=== PATIENT | male | born 1955 | race Caucasian/White ===

== ENCOUNTER 2018-05-21 18:48 | Inpatient (IN) | payer OTHER ==
[~2018-05-21] VITALS: Ht 177.8 cm; Wt 74.8 kg
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
--- NOTE | ~2018-05-21 | EKG ---
[address] [place] [address] ELECTROCARDIOGRAM REPORT Name: MEGHA GOMEZ Room #: 406-P ADM IN M.R.#: [id number] Admission: 05/21/18 Attend Phys: Antelmo Olivares MD Discharge: Date of : 53 Report #: [id number] THIS REPORT FOR: //name// [facility] ED Test Date: 2018-05-21 Test Time: 19:25:06 Pat Name: MEGHA GOMEZ Department: Room: Gender: M Operations Supervisor 2Nd Shift: Morelia THOMPSON : 1955 Requested By: Taisha Gilmore Order Number: [id number] MD: Doug Fofana Measurements Intervals [place] Rate: 50 P: 24 TX: 153 QRS: 2 QRSD: 98 T: 44 QT: 455 QTc: 415 Interpretive Statements Sinus rhythm Minimal ST elevation, anterior leads Baseline wander in lead(s) V4 No previous ECG available for comparison Electronically Signed On 05-21-2018 20:41:51 CDT by Doug Fofana [email or web address] <ELECTRONICALLY SIGNED> By: Doug Fofana MD 05/21/182040 24 24 Doug Fofana MD /ANALI
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
[2018-05-21 18:51] VITALS: BP 144/62
[2018-05-21 19:52] LABS: BASOPHILS 0.8 % (0.0-2.0); EOSINOPHILS 2.5 % (0.0-3.0); HEMATOCRIT 42.5 % (42.0-52.0); HEMOGLOBIN 14.5 gm/dL (14.0-18.0); LYMPHOCYTES 37.6 % (24.0-44.0); MCH 31.3 pg (26.0-34.0); MCHC 34.1 g/dL (28.0-37.0); MONOCYTES 7.5 % (1.0-8.0); PLATELET COUNT 237 thou/uL (150-400); POLYS 51.6 % (36.0-66.0); RBC 4.62 mil/uL (4.50-6.00); RDW 13.8 % (10.5-14.5); WBC 5.8 thou/uL (4.0-11.0)
[2018-05-21 19:54] LABS: CALCIUM 9.5 mg/dL (8.5-10.1); CREATININE 1.4 mg/dL (0.7-1.3); POTASSIUM 4.1 mmol/L (3.5-5.1)
[2018-05-21 20:14] VITALS: BP 154/88
[2018-05-21 20:43] VITALS: BP 150/86
[2018-05-21] MEDS ORDERED: CLARITIN10 MG PO (20:48)
[2018-05-21] MEDS ORDERED: UNICOMPLEX M TA1 TA1 PO (20:49)
[2018-05-22] VITALS (7 sets, daily range): BP systolic 97–129; BP diastolic 58–82
[2018-05-22 05:37] LABS: PROTIME 10.6 Seconds (9.3-11.4)
[2018-05-22 05:42] LABS: CALCIUM 8.4 mg/dL (8.5-10.1); CREATININE 1.3 mg/dL (0.7-1.3); POTASSIUM 4.2 mmol/L (3.5-5.1)
[2018-05-23] VITALS: BP 126/75
[2018-05-23 03:52] LABS: HEMATOCRIT 40.8 % (42.0-52.0); HEMOGLOBIN 13.7 gm/dL (14.0-18.0); MCH 31.3 pg (26.0-34.0); MCHC 33.5 g/dL (28.0-37.0); MCV 93.3 fL (80.0-100.0); RBC 4.38 mil/uL (4.50-6.00); RDW 13.9 % (10.5-14.5); WBC 8.3 thou/uL (4.0-11.0)
[2018-05-23 04:00] VITALS: BP 133/72
[2018-05-23 07:47] VITALS: BP 127/68
[2018-05-23 18:40] VITALS: BP 146/81
[2018-05-24 07:15] VITALS: BP 120/79
[2018-05-24] MEDS ORDERED: ASA5UEC PO (09:27)
[2018-05-24] MEDS ORDERED: NORCO 10-325 T1 EACH PO (09:27)
[2018-05-24] MEDS ORDERED: SENNA-TIME S T1 EACH PO (09:27)
[2018-05-24 14:16] VITALS: BP 120/79
[2018-05-24 14:49] VITALS: BP 120/79
== END 2018-05-24 14:51 | disposition home health service (06) | DRG 481 ==
LOC: ER 18:48 → EROBS 20:00 → 4N 20:00 → SICU 05-23 18:06
PROVIDERS: Emergency Medicine; Hospitalist; Nurse Practitioner Family
PROC: 0QH734Z Insertion of Internal Fixation Device into Left Upper Femur, Percutaneous Approach (ICD-10-PCS; principal; 2018-05-22)
DX: S72.002A Fracture of unspecified part of neck of left femur, initial encounter for closed fracture (principal); K56.7 Ileus, unspecified; W19.XXXA Unspecified fall, initial encounter; Y93.55 Activity, bike riding; Y92.89 Other specified places as the place of occurrence of the external cause; Y99.8 Other external cause status; Z88.1 Allergy status to other antibiotic agents; Z79.2 Long term (current) use of antibiotics; Z79.899 Other long term (current) drug therapy
CPT/HCPCS: 10091; 15002; 50010; 50101; 50386; 51412; 51538; 53400; 56525; 57092; 62110; 62900; 70005

== ENCOUNTER 2018-06-06 08:24 | Inpatient (IN) | payer OTHER ==
[~2018-06-06] VITALS: Ht 177.8 cm; Wt 77.1 kg
[~2018-06-06 08:24] MED LIST: ASA5UEC PO; CLARITIN10 MG PO; NORCO 10-325 T1 EACH PO; SENNA-TIME S T1 EACH PO; UNICOMPLEX M TA1 TA1 PO
[2018-06-06 11:09] LABS: URINE BILIRUBIN NEGATIVE (Negative); URINE BLOOD NEGATIVE (Negative); URINE CLARITY CLEAR; URINE COLOR YELLOW; URINE GLUCOSE-RANDOM* NEGATIVE (Negative); URINE KETONES NEGATIVE (Negative); URINE LEUKOCYTES-REFLEX NEGATIVE (Negative); URINE NITRITE-REFLEX NEGATIVE (Negative); URINE PROTEIN (DIPSTICK) NEGATIVE (Negative); URINE UROBILINOGEN 0.2 E.U./dl (0.2-1.0)
[2018-06-06 11:10] LABS: ABSOLUTE NEUTROPHILS 5.3 thou/uL (1.4-8.2); BASOPHILS 0.5 % (0.0-2.0); EOSINOPHILS 1.3 % (0.0-3.0); HEMATOCRIT 39.2 % (42.0-52.0); HEMOGLOBIN 13.6 gm/dL (14.0-18.0); MCH 31.7 pg (26.0-34.0); MCHC 34.6 g/dL (28.0-37.0); MCV 91.6 fL (80.0-100.0); MONOCYTES 9.5 % (1.0-8.0); PLATELET COUNT 353 thou/uL (150-400); POLYS 72.7 % (36.0-66.0); RBC 4.28 mil/uL (4.50-6.00); RDW 13.4 % (10.5-14.5); WBC 7.3 thou/uL (4.0-11.0)
[2018-06-06 11:13] LABS: CALCIUM 9.5 mg/dL (8.5-10.1); CREATININE 1.8 mg/dL (0.7-1.3)
[2018-06-06] MEDS ORDERED: CIPRO250 M1 PO (12:19)
[2018-06-06] MEDS ORDERED: TYLENOL EXTRA500 MG PO (12:20)
[2018-06-06] MEDS ORDERED: IBUPROFEN 200200 M1 PO (12:21)
[2018-06-06 13:51] VITALS: BP 103/57
[2018-06-06 14:45] VITALS: BP 115/61
[2018-06-06 19:35] VITALS: BP 99/60
[2018-06-07 01:06] LABS: PSA 1.9 ng/mL (0.0-4.0)
[2018-06-07 04:00] VITALS: BP 105/54
[2018-06-07 04:27] LABS: ABSOLUTE NEUTROPHILS 4.6 thou/uL (1.4-8.2); BASOPHILS 0.4 % (0.0-2.0); EOSINOPHILS 2.7 % (0.0-3.0); HEMATOCRIT 33.4 % (42.0-52.0); LYMPHOCYTES 23.2 % (24.0-44.0); MCH 31.6 pg (26.0-34.0); MCHC 34.6 g/dL (28.0-37.0); MCV 91.3 fL (80.0-100.0); MONOCYTES 9.2 % (1.0-8.0); PLATELET COUNT 300 thou/uL (150-400); POLYS 64.5 % (36.0-66.0); RBC 3.66 mil/uL (4.50-6.00); RDW 12.7 % (10.5-14.5); WBC 7.1 thou/uL (4.0-11.0)
[2018-06-07 04:39] LABS: ALBUMIN 2.5 g/dL (3.4-5.0); CREATININE 1.3 mg/dL (0.7-1.3); MAGNESIUM 1.4 mg/dL (1.8-2.4); PHOSPHORUS 3.9 mg/dL (2.5-4.9); POTASSIUM 3.9 mmol/L (3.5-5.1)
[2018-06-07 04:40] LABS: HEMOGLOBIN 11.6 gm/dL (14.0-18.0)
[2018-06-07 08:05] VITALS: BP 108/58
[2018-06-07] MEDS ORDERED: FLOMAX0.4 MG PO (08:59)
[2018-06-07] MEDS ORDERED: CIPRO250 M1 PO (09:03)
[2018-06-07 12:48] VITALS: BP 108/58
[2018-06-09 11:11] LABS: CEA 2.4 ng/mL (0.0-4.7)
== END 2018-06-07 15:51 | disposition home or self-care (01) | DRG 698 ==
LOC: ULTRA 08:24 → 4E 10:08 → EROBS 10:08 → 4E 15:21
PROVIDERS: Hospitalist; Nurse Practitioner
DX: N32.0 Bladder-neck obstruction (principal); N17.0 Acute kidney failure with tubular necrosis; N39.0 Urinary tract infection, site not specified; N13.30 Unspecified hydronephrosis; N40.1 Benign prostatic hyperplasia with lower urinary tract symptoms; K59.00 Constipation, unspecified; R33.8 Other retention of urine; E83.42 Hypomagnesemia; Z87.81 Personal history of (healed) traumatic fracture; Z79.899 Other long term (current) drug therapy; Z84.2 Family history of other diseases of the genitourinary system
CPT/HCPCS: 10783